=== PATIENT | male | born 1965 | race Caucasian/White ===

== ENCOUNTER 2021-05-06 07:26 | Inpatient (IN) | payer MEDICAID ==
[~2021-05-06] VITALS: Ht 172.7 cm; Wt 111.1 kg
[~2021-05-06 07:26] MED LIST: AMBIEN 5 MG TABL5 M1 PO; ASPIRIN325 PO; BAYER CHEWABLE81 MG PO; BENADRYL25 MG PO; BENICAR HCT 401 EAC1 PO; BENICAR20 MG PO; BENICAR40 MG PO; COLACE100 MG PO; COZAAR 25 MG TA25 M1 PO; COZAAR 50 MG TA50 M2 PO; HEPARIN IV; HEPARIN-1/100 UNIT/M IVPB; HYDROCODONE-AP1 EAC6 PO; LIPITOR 20 MG T20 M1 PO; LIPITOR10 MG; LOPRESSOR25 PO; METOPROLOL TART25 MG PO; MICROZIDE12.5 MG PO; MIRALAX17 GM PO; NAPROSYN500 MG PO; NEURONTIN 300300 M1; NITROGLYCERIN IV; NORFLEX100 MG PO; ONDANSETRON HCL4 M1 IV; ONDANSETRON HCL4 M2 PO; PACERONE 200 M200 M1 PO; PLAVIX 75 MG TA75 M1; PREDNISONE 10 M10 M1 PO; PROZAC20 MG; RANEXA500 MG; TOPAMAX50 MG; TRAZODONE HCL100 MG; TYLENOL325 MG PO; VICODIN ES TAB1 EACH PO; [UNRECOGNIZED DRUG - OTHER]
[2021-05-06 07:42] VITALS: BP 135/72
[2021-05-06] MEDS ORDERED: FENOGLIDE40 MG PO (07:46)
[2021-05-06] MEDS ORDERED: CRESTOR5 MG PO (07:46)
[2021-05-06] MEDS ORDERED: MONTELUKAST SODI4 M1 PO (07:47)
[2021-05-06] MEDS ORDERED: ISORDIL 5MG TABL5 MG PO (07:47)
[2021-05-06] MEDS ORDERED: FAMOTIDINE 10 M10 MG PO (07:47)
[2021-05-06] MEDS ORDERED: NITROSTAT0.4 M1 (07:47)
[2021-05-06] MEDS ORDERED: MIRTAZAPINE7.5 MG PO (07:48)
[2021-05-06 08:27] LABS: HEMATOCRIT 45.8 % (42.0-52.0); HEMOGLOBIN 15.5 gm/dL (14.0-18.0); MCH 28.6 pg (26.0-34.0); MCHC 33.8 g/dL (28.0-37.0); MCV 84.4 fL (80.0-100.0); MPV 8.8 fl. (7.2-11.1); NUCLEATED RBCS 0 /100WBC; PLATELET COUNT* 170 thou/uL (150-400); RBC 5.42 mil/uL (4.50-6.00); RDW-CV 14.5 % (10.5-14.5); WBC 6.7 thou/uL (4.0-11.0)
[2021-05-06 08:35] LABS: CALCIUM 8.5 mg/dL (8.5-10.1); CREATININE 1.1 mg/dL (0.6-1.3); POTASSIUM 3.6 mmol/L (3.5-5.1)
[2021-05-06 08:46] LABS: ALBUMIN 2.6 g/dL (3.4-5.0); TOTAL BILIRUBIN 0.5 mg/dL (<0.1-1.0); TOTAL PROTEIN 6.8 g/dL (6.4-8.2)
[2021-05-06 09:21] LABS: INFLUENZA A ANTIGEN Negative (Negative); INFLUENZA B ANTIGEN Negative (Negative)
[2021-05-06 09:22] LABS: ABSOLUTE LYMPHOCYTES 0.3 thou/uL (0.8-5.3); ABSOLUTE MONOCYTES 0.3 thou/uL (0.0-1.2); PLATELET ESTIMATE ADEQUATE
--- NOTE | 2021-05-06 10:42 | EKG ---
[place] [address] ELECTROCARDIOGRAM REPORT Name: ALE LEROY Room: [place] [address] ADM IN .R.#: [id number] Admission: 05/06/21 Attend Phys: Oscar Schuster Discharge: Date of : 63 Date of Service: 05/06/21 0749 Report #: [id number] THIS REPORT FOR: //name// [facility] ED Test Date: 2021-05-06 Test Time: 07:49:21 Pat Name: ALE LEROY Department: Room: [facility] Gender: M Roofing Machine Tender: ISIAH : 1965 Requested By: Evans Zamora Order Number: [id number] MD: Gregory Aranda Measurements Intervals [place] Rate: 70 P: 30 ME: 165 QRS: -2 QRSD: 100 T: 53 QT: 424 QTc: 458 Interpretive Statements Sinus rhythm Compared to ECG 06/28/2015 03:57:51 Sinus bradycardia no longer present T-wave abnormality no longer present Possible ischemia no longer present Electronically Signed On 05-06-2021 10:42:15 A P MANAGER by Gregory Aranda [email or web address] <ELECTRONICALLY SIGNED> By: Kari Aranda MD, [facility] 05/06/21 1042 0749 0749 Kari Aranda MD, [facility] /EPI
[2021-05-06 14:25] VITALS: BP 116/53
[2021-05-06 17:31] VITALS: BP 120/71
--- NOTE | 2021-05-06 18:35 | NUR ---
PT HAS JUST REPORTED THAT HE DOES NOT WANT TO BE A "DNR" ANYMORE. PT IS PREFERRING TO HAVE CPR AND INTUBATION IF NEEDED.
[2021-05-06 22:00] VITALS: BP 142/73
[2021-05-07 02:19] VITALS: BP 139/78
[2021-05-07 02:25] LABS: BE 0.4 mmol/L (-2 to +3); PCO2 32.9 mmHg (35.0-45.0); pH 7.469 (7.340-7.450)
[2021-05-07 02:27] LABS: PO2 59.4 mmHg (75.0-100.0)
[2021-05-07 03:37] LABS: ABSOLUTE LYMPHOCYTES 0.7 thou/uL (0.8-5.3); ABSOLUTE MONOCYTES 0.3 thou/uL (0.0-1.2); ABSOLUTE NEUTROPHILS 8.3 thou/uL (1.6-8.1); BASOPHILS 0.4 %; HEMOGLOBIN 14.6 gm/dL (14.0-18.0); LYMPHOCYTES 7.4 %; MCH 28.5 pg (26.0-34.0); MCHC 33.9 g/dL (28.0-37.0); MCV 83.9 fL (80.0-100.0); MONOCYTES 2.8 %; MPV 8.3 fl. (7.2-11.1); NUCLEATED RBCS 0 /100WBC; PLATELET COUNT* 210 thou/uL (150-400); POLYS 89.4 %; RBC 5.12 mil/uL (4.50-6.00); RDW-CV 14.7 % (10.5-14.5); WBC 9.3 thou/uL (4.0-11.0)
[2021-05-07 04:06] LABS: APTT 29.3 Seconds (25.0-31.3); CALCIUM 8.1 mg/dL (8.5-10.1); CREATININE 1.1 mg/dL (0.6-1.3); INR 1.1; MAGNESIUM 1.9 mg/dL (1.8-2.4); PHOSPHORUS* 2.8 mg/dL (2.5-4.9); POTASSIUM 3.4 mmol/L (3.5-5.1)
--- NOTE | 2021-05-07 05:12 | NUR ---
DR BRITO (PULMONARY) CALLED RE: CONSULT
[2021-05-07 08:24] VITALS: BP 118/49
--- NOTE | 2021-05-07 10:01 | NUR ---
Pt is admitted on 05/06/21 with Covid. Called Marie at: to complete assessment. Pt lives in a house with one step to enter and 5 steps to his bedroom. Pt was independent in ADL's and Mobility. reports pt has a CPAP machine. Pt saw his PCP approxmately 2 weeks ago. No hx of HH or SNF. CM to follow for discharge planning.
[2021-05-07 12:24] VITALS: BP 133/65
[2021-05-07 16:07] LABS: BE 0.6 mmol/L (-2 to +3); PCO2 35.4 mmHg (35.0-45.0); PO2 108.7 mmHg (75.0-100.0); pH 7.451 (7.340-7.450)
[2021-05-07 16:24] VITALS: BP 125/65
--- NOTE | 2021-05-07 20:07 | NUR ---
REASSURED PATIENT'S FAMILY OVER THE PHONE OF PATIENT'S STATUS. PATIENT IS STABLE AT THIS TIME. FAMILY WAS UNDER THE IMPRESSION PATIENT WAS ICU STATUS AND WE WERE LOOKING FOR PLACEMENT AT A DIFFERENT HOSPITAL.
[2021-05-07 20:08] VITALS: BP 131/65
[2021-05-08 00:08] VITALS: BP 145/82
[2021-05-08 04:13] VITALS: BP 135/59
[2021-05-08 09:38] VITALS: BP 127/82
[2021-05-08 10:36] VITALS: BP 110/69
--- NOTE | 2021-05-08 11:46 | NUR ---
Patient to room 103 via hospital bed from ER. Patient placed on high flow nc, 50 liters at 100%. Breath sounds are diminished. Patient is to have Chest CT with CTA today due to ddimer 1.257.
[2021-05-08 16:00] VITALS: BP 142/69
--- NOTE | 2021-05-08 16:46 | NUR ---
PATIENT TO CT VIA WHEELCHAIR AND ON OXYGEN HIGH FLOW NC AT 15 LITERS.
--- NOTE | 2021-05-08 17:03 | NUR ---
Back to room from CT. Oxygen on 15 liters high flow ..
--- NOTE | 2021-05-08 18:33 | NUR ---
pATIENT HAD A GOOD DAY. REMAINS ON HIGH FLOW, BUT SEEMS TO TOLERATE WELL. WILL GRADUALLY WEAN O2 DOWN RT DETERMINES. PATIENT UP TO COMMODE WITH LITTLE ASSIST. IV SITES X2 PATENT. PATIENT EATS VERY LITTLE DUE TO GASTRIC SLEEVE.
[2021-05-08 20:30] VITALS: BP 137/74
[2021-05-09] VITALS: BP 125/79
--- NOTE | 2021-05-09 00:49 | NUR ---
PT REFUSED BIPAP FOR THE NIGHT,NURSING NOTIFIED. PT ON HHF 55L 100% SAT'S ARE 97%
[2021-05-09 04:00] VITALS: BP 162/77
[2021-05-09 04:33] LABS: HEMATOCRIT 42.7 % (42.0-52.0); HEMOGLOBIN 14.3 gm/dL (14.0-18.0); MCH 28.4 pg (26.0-34.0); MCHC 33.4 g/dL (28.0-37.0); MCV 85.1 fL (80.0-100.0); MPV 8.2 fl. (7.2-11.1); RBC 5.02 mil/uL (4.50-6.00); RDW-CV 14.5 % (10.5-14.5); WBC 8.8 thou/uL (4.0-11.0)
[2021-05-09 05:15] LABS: CALCIUM 8.6 mg/dL (8.5-10.1); MAGNESIUM 2.2 mg/dL (1.8-2.4); POTASSIUM 3.6 mmol/L (3.5-5.1)
--- NOTE | 2021-05-09 07:43 | NUR ---
PATIENT SLEPT MOST OF THE NIGHT. PATIENT REFUSED TO WEAR BIPAP BUT WAS STABLE ON THE HEATED HIGHFLOW OVERNIGHT SATTING IN THE 90S. PATIENT STILL SHORT OF AIR WITH ACTIVITY. WILL CONTINUE TO MONITOR.
[2021-05-09 08:25] VITALS: BP 146/60
--- NOTE | 2021-05-09 12:42 | NUR ---
CM FOLLOWUP PT NOT MED CLEAR YET. PT CURRENTLY ON BIPAP. PT AND FAMILY SEEKING TO DC HOME WHEN MED CLEARED. PRIOR TO HOSPITALIZATION, PT INDEPENDENT WITH ADLS AND LIVING WITH . CM TO FOLLOW FOR DC PLANNING NEEDS.
[2021-05-09 13:06] VITALS: BP 135/52
[2021-05-09 16:45] VITALS: BP 149/61
[2021-05-09 20:00] VITALS: BP 128/60
[2021-05-10] VITALS: BP 167/71
[2021-05-10 03:45] LABS: HEMATOCRIT 40.6 % (42.0-52.0); HEMOGLOBIN 13.5 gm/dL (14.0-18.0); MCH 28.3 pg (26.0-34.0); MCHC 33.2 g/dL (28.0-37.0); MCV 85.4 fL (80.0-100.0); MPV 8.1 fl. (7.2-11.1); RBC 4.75 mil/uL (4.50-6.00); RDW-CV 14.3 % (10.5-14.5); WBC 9.7 thou/uL (4.0-11.0)
[2021-05-10 04:00] VITALS: BP 145/85
[2021-05-10 04:09] LABS: CALCIUM 8.2 mg/dL (8.5-10.1); CREATININE 0.9 mg/dL (0.6-1.3)
--- NOTE | 2021-05-10 05:16 | NUR ---
ASSUMED CARE OF PT AFTER REPORT AT 1930. PT A&OX4. VSS. PHYSICAL ASSESSMENT COMPLETED AND CHARTED. PT ON HHFNC 40L/60%/BIPAP 60% AT HS. PT TRACING SR/SB-HR 30'S-50'S. PT UPADLIB TO BSC. PT DENIES ANY PAIN. CALL LIGHT WITHIN REACH.
[2021-05-10 08:00] VITALS: BP 132/63
[2021-05-10 11:40] VITALS: BP 140/79
[2021-05-10 12:33] LABS: BE 1.9 mmol/L (-2 to +3); PCO2 37.6 mmHg (35.0-45.0); pH 7.452 (7.340-7.450)
[2021-05-10 12:40] LABS: PO2 57.2 mmHg (75.0-100.0)
--- NOTE | 2021-05-10 13:28 | NUR ---
PO2 reported to respiratory and shoe stainer.
--- NOTE | 2021-05-10 15:21 | NUR ---
CM FOLLOWUP PT NOT MED CLEAR. PT ON HIFLOW 02. CURRENT PLAN FOR PT TO DC HOME WITH . PT HAS HOME CPAP. CM TO FOLLOW FOR DC PLANNING NEEDS.
[2021-05-10 20:00] VITALS: BP 151/79
[2021-05-11] VITALS: BP 173/78
[2021-05-11 04:00] VITALS: BP 169/86
--- NOTE | 2021-05-11 05:45 | NUR ---
ASSUMED CARE OF PT AFTER REPORT AT 1930. PT A&OX4. VSS. PHYSICAL ASSESSMENT COMPLETED AND CHARTED. PT ON HHFNC 50L/70%/BIPAP 60% AT HS. PT TRACING SR/SB ON TELE. PT UPADLIB TO BSC. PT DENIES ANY PAIN. PT ABLE TO SLEEP WELL ON BED. CALL LIGHT WITHIN REACH.
[2021-05-11 06:45] LABS: HEMATOCRIT 39.4 % (42.0-52.0); HEMOGLOBIN 13.4 gm/dL (14.0-18.0); MCH 28.6 pg (26.0-34.0); MCV 84.1 fL (80.0-100.0); MPV 7.9 fl. (7.2-11.1); RBC 4.68 mil/uL (4.50-6.00); RDW-CV 14.2 % (10.5-14.5); WBC 8.3 thou/uL (4.0-11.0)
[2021-05-11 06:54] LABS: CALCIUM 8.1 mg/dL (8.5-10.1)
[2021-05-11 08:00] VITALS: BP 103/61
[2021-05-11 11:43] LABS: BE 2.2 mmol/L (-2 to +3); PCO2 38.3 mmHg (35.0-45.0); PO2 70.9 mmHg (75.0-100.0); pH 7.452 (7.340-7.450)
[2021-05-11 13:12] VITALS: BP 137/55
[2021-05-11 16:00] VITALS: BP 157/82
[2021-05-11 20:00] VITALS: BP 154/76
[2021-05-12 00:51] VITALS: BP 143/76
--- NOTE | 2021-05-12 00:53 | NUR ---
ASSUMED CARE OF PT AFTER REPORT AT 1930. PT A&OX4. VSS. PHYSICAL ASSESSMENT COMPLETED AND CHARTED. PT ON HHFNC 50L/70%/BIPAP 60% AT HS. PT TRACING SR/SB ON TELE. PT UPADLIB. PT DENIES PAIN. CALL LIGHT WITHIN REACH.
[2021-05-12 04:08] VITALS: BP 154/68
[2021-05-12 08:00] VITALS: BP 123/73
[2021-05-12 20:00] VITALS: BP 143/72
[2021-05-13] VITALS: BP 165/80
[2021-05-13 04:00] VITALS: BP 144/64
--- NOTE | 2021-05-13 05:29 | NUR ---
ASSUMED CARE OF PT AFTER REPORT AT 1930. PT A&OX4. VSS. PHYSICAL ASSESSMENT COMPLETED AND CHARTED. PT ON HHFNC 55L/98%/BIPAP 60% AT HS. PT TRACING SR/SB ONTELE. PT UPADLIB TO BSC. PT DENIES ANY PAIN. CALL LIGHT WITHIN REACH.
[2021-05-13 05:51] LABS: HEMATOCRIT 39.6 % (42.0-52.0); HEMOGLOBIN 13.4 gm/dL (14.0-18.0); MCH 28.5 pg (26.0-34.0); MCHC 33.7 g/dL (28.0-37.0); MCV 84.4 fL (80.0-100.0); MPV 8.5 fl. (7.2-11.1); RBC 4.69 mil/uL (4.50-6.00); RDW-CV 14.1 % (10.5-14.5); WBC 8.8 thou/uL (4.0-11.0)
[2021-05-13 06:20] LABS: CALCIUM 7.9 mg/dL (8.5-10.1); CREATININE 0.9 mg/dL (0.6-1.3); POTASSIUM 3.8 mmol/L (3.5-5.1)
--- NOTE | 2021-05-13 07:10 | NUR ---
CHANGE OF SHIFT REPORT GIVEN PATIENT SEEN AT BEDSIDE ASSUMED PATIENT CARE
[2021-05-13 08:00] VITALS: BP 134/82
[2021-05-13 12:48] VITALS: BP 125/71
[2021-05-13 16:54] VITALS: BP 143/79
[2021-05-13 20:00] VITALS: BP 144/71
[2021-05-14 01:56] VITALS: BP 123/62
[2021-05-14 04:48] LABS: HEMATOCRIT 39.7 % (42.0-52.0); HEMOGLOBIN 13.6 gm/dL (14.0-18.0); MCH 28.9 pg (26.0-34.0); MCHC 34.3 g/dL (28.0-37.0); MCV 84.1 fL (80.0-100.0); MPV 7.7 fl. (7.2-11.1); RBC 4.72 mil/uL (4.50-6.00); RDW-CV 14.1 % (10.5-14.5); WBC 10.1 thou/uL (4.0-11.0)
[2021-05-14 05:01] LABS: MAGNESIUM 2.1 mg/dL (1.8-2.4); POTASSIUM 3.7 mmol/L (3.5-5.1); TOTAL BILIRUBIN 0.6 mg/dL (<0.1-1.0); TOTAL PROTEIN 5.4 g/dL (6.4-8.2)
[2021-05-14 06:06] VITALS: BP 142/74
--- NOTE | 2021-05-14 07:46 | NUR ---
ASSUMED CARE OF PT AFTER REPORT AT 1930. PT A&OX4. VSS. PHYSICAL ASSESSMENT COMPLETED AND CHARTED. PT ON HHFNC/BIPAP AT HS. PT TRACING SR/SB ON TELE. PT UPADLIB TO RESTROOM. PT DENNIES PAIN. CALL LIGHT WITHIN REACH.
[2021-05-14 08:00] VITALS: BP 128/70
[2021-05-14 12:07] VITALS: BP 139/81
--- NOTE | 2021-05-14 12:51 | NUR ---
Nutrition: Pt admitted with COVID. Assessed for LOS. Pt refused remdesivir, recevied convalescant plasma. Wt: 237#, was 260# at admit. Please reweigh for accuracy. 2gm Na diet. BG 152, albumin 2. H/o CABG x6, HTN. Bipap HS. Encourage good meal intake. Low nutrition risk.
--- NOTE | 2021-05-14 14:11 | NUR ---
CM FOLLOWUP PT NOT YET MED CLEAR. PT WITH INCREASED O2 NEEDS. CM TO FOLLOW FOR DC NEEDS. CURRENT DC PLAN IS TO DC HOME WITH SPOUSE UPON MED CLEARANCE.
[2021-05-14 16:34] VITALS: BP 134/80
[2021-05-14 20:00] VITALS: BP 147/93
[2021-05-15 02:19] VITALS: BP 142/77
[2021-05-15 05:45] LABS: ABSOLUTE LYMPHOCYTES 0.5 thou/uL (0.8-5.3); ABSOLUTE MONOCYTES 0.2 thou/uL (0.0-1.2); ABSOLUTE NEUTROPHILS 6.6 thou/uL (1.6-8.1); BASOPHILS 0.2 %; EOSINOPHILS 0.1 %; HEMATOCRIT 38.2 % (42.0-52.0); HEMOGLOBIN 12.9 gm/dL (14.0-18.0); LYMPHOCYTES 6.8 %; MCH 28.6 pg (26.0-34.0); MCHC 33.8 g/dL (28.0-37.0); MCV 84.7 fL (80.0-100.0); MONOCYTES 2.6 %; MPV 8.7 fl. (7.2-11.1); NUCLEATED RBCS 0 /100WBC; PLATELET COUNT* 184 thou/uL (150-400); POLYS 90.3 %; RDW-CV 14.1 % (10.5-14.5); WBC 7.3 thou/uL (4.0-11.0)
--- NOTE | 2021-05-15 06:03 | NUR ---
ASSUMED CARE OF PT AFTER REPORT AT 1930. PT A&OX4. VSS. PHYSICAL ASSESSMENT COMPLETED AND CHARTED. PT ON HHFNC 40L/85%/BIPAP 60 AT HS. PT TRACING SR/SB ON TELE. PT UPADLIB TO BSC. PT ABLE TO SLEEP WELL ON BED. CALL LIGHT WITHIN REACH.
[2021-05-15 06:26] VITALS: BP 141/65
[2021-05-15 06:27] LABS: ALBUMIN 1.9 g/dL (3.4-5.0); CALCIUM 7.9 mg/dL (8.5-10.1); CREATININE 0.8 mg/dL (0.6-1.3); MAGNESIUM 2.2 mg/dL (1.8-2.4); PHOSPHORUS* 4.6 mg/dL (2.5-4.9); POTASSIUM 4.2 mmol/L (3.5-5.1); TOTAL BILIRUBIN 0.5 mg/dL (<0.1-1.0); TOTAL PROTEIN 5.3 g/dL (6.4-8.2)
[2021-05-15 08:00] VITALS: BP 128/71
--- NOTE | 2021-05-15 12:23 | NUR ---
CM FOLLOWUP PT IS NOT MED CLEAR YET. PT ON 40L O2. PT WOULD LIKE TO DC HOME WHEN MED CLEAR. PT LIVES WITH . CM TO FOLLOW PT FOR FUTURE DC PLANNING NEEDS.
[2021-05-15 12:25] VITALS: BP 132/70
[2021-05-15 16:00] VITALS: BP 117/68
[2021-05-15 20:00] VITALS: BP 111/64
[2021-05-16 01:44] VITALS: BP 143/78
[2021-05-16 04:46] LABS: HEMATOCRIT 38.4 % (42.0-52.0); HEMOGLOBIN 13.1 gm/dL (14.0-18.0); MCH 28.7 pg (26.0-34.0); MCV 84.4 fL (80.0-100.0); MPV 8.7 fl. (7.2-11.1); RBC 4.54 mil/uL (4.50-6.00); RDW-CV 14.1 % (10.5-14.5); WBC 8.9 thou/uL (4.0-11.0)
[2021-05-16 05:12] LABS: ALBUMIN 2.1 g/dL (3.4-5.0); CALCIUM 8.2 mg/dL (8.5-10.1); CREATININE 0.8 mg/dL (0.6-1.3); MAGNESIUM 2.2 mg/dL (1.8-2.4); POTASSIUM 4.3 mmol/L (3.5-5.1); TOTAL BILIRUBIN 0.5 mg/dL (<0.1-1.0); TOTAL PROTEIN 5.5 g/dL (6.4-8.2)
[2021-05-16 05:31] VITALS: BP 110/74
--- NOTE | 2021-05-16 06:58 | NUR ---
ASSUMED CARE OF PT AFTER REPORT AT 1930. PT A&OX4. VSS. PHYSICAL ASSESSMENT COMPLETED AND CHARTED. PT ON HFNC 12L/BIPAP AT HS. PT TRACING SR/SB ON TELE. PT UPADLIB TO BSC. PT ABLE TO SLEEP WELL ON BED. CALL LIGHT WITHIN REACH.
[2021-05-16 08:00] VITALS: BP 106/71
[2021-05-16 13:03] VITALS: BP 106/70
--- NOTE | 2021-05-16 15:30 | NUR ---
CM FOLLOWUP PT NOT YET MED CLEAR. PT ON 12L O2. CURRENT DC PLAN IS FOR PT TO DC HOME WITH SPOUSE WHEN MED CLEAR. CM TO FOLLOW FOR DC NEEDS.
[2021-05-16 16:00] VITALS: BP 122/67
[2021-05-16 20:00] VITALS: BP 128/77
[2021-05-17 00:06] VITALS: BP 136/73
[2021-05-17 04:01] VITALS: BP 144/70
--- NOTE | 2021-05-17 04:01 | NUR ---
ASSUMED CARE OF PT AFTER REPORT AT 1930. PT A&OX4. VSS. PHYSICAL ASSESSMENT COMPLETED AND CHARTED. PT ON HFNC 7L. PT TRACING SR/SB ON TELE. PT UPADLIB TO BSC. PT DENIES PAIN. PT ABLE TO SLEEP WELL ON BED. CALL LIGHT WITHIN REACH.
[2021-05-17 08:00] VITALS: BP 107/66
[2021-05-17 12:59] VITALS: BP 117/90
--- NOTE | 2021-05-17 13:36 | NUR ---
CM FOLLOWUP PT NOT YET MED CLEAR. ANTICIPATE PT BEING MED CLEAR TOMORROW, 05/18/21. PT TO COMPLETE A REST/EX TEST PRIOR TO DC TO DETERMINE O2 NEEDS. CM TO FOLLOW. CURRENT PLAN FOR PT TO DC HOME WITH SPOUSE.
[2021-05-17 16:00] VITALS: BP 132/73
[2021-05-17 20:00] VITALS: BP 128/77
[2021-05-18 00:38] VITALS: BP 118/64
--- NOTE | 2021-05-18 02:23 | NUR ---
ASSUMED CARE OF PT AFTER REPORT AT 1930. PT A&OX4. VSS. PHYSICAL ASSESSMENT COMPLETED AND CHARTED. PT ON HFNC 7L/BIPAP AT HS. PT TRACING SR/SB ON TELE. PT UPADLIB. DENIES PAIN. PT TRANSFERRED TO RM 210 VIA WHEELCHAIR WITH NURSING STAFF WITH BELONGINGS.
[2021-05-18 04:09] VITALS: BP 134/75
[2021-05-18 04:43] LABS: HEMATOCRIT 40.9 % (42.0-52.0); HEMOGLOBIN 13.8 gm/dL (14.0-18.0); MCH 28.8 pg (26.0-34.0); MCHC 33.8 g/dL (28.0-37.0); MCV 85.3 fL (80.0-100.0); MPV 8.9 fl. (7.2-11.1); NUCLEATED RBCS 0 /100WBC; PLATELET COUNT* 167 thou/uL (150-400); RDW-CV 14.4 % (10.5-14.5)
--- NOTE | 2021-05-18 04:54 | NUR ---
REPORT RECEIVED FROM CE TILLMAN ON THIS PATIENT AND PT UP VIA W/CHAIR TO ROOM 210. PT ALERT/ORIENTED X4 AND UP AD GOSIA. PT ON HIGH FLOW @ 7LITERS PER NASAL CANNULA. LONG O2 TUBING PROVIDED SO PT CAN AMBULATE TO BATHROOM. PT WITH DOUBLE LUMAN PICC IN RT UPPER ARM; SALINE LOCKED. PT DENIES PAIN/NAUSEA DURING THIS SHIFT. PT IS HOPING TO BE DISCHARGED TODAY. FREQUENTLY USED ITEMS AND CALL LIGHT WITHIN REACH. SIDERAILS UPX1. WILL CONTINUE TO MONITOR.
[2021-05-18 05:23] LABS: ALBUMIN 2.3 g/dL (3.4-5.0); CALCIUM 8.5 mg/dL (8.5-10.1); MAGNESIUM 2.2 mg/dL (1.8-2.4); PHOSPHORUS* 4.2 mg/dL (2.5-4.9); POTASSIUM 4.2 mmol/L (3.5-5.1); TOTAL BILIRUBIN 0.7 mg/dL (<0.1-1.0); TOTAL PROTEIN 5.7 g/dL (6.4-8.2)
[2021-05-18 06:29] LABS: ABSOLUTE BASOPHILS 0.1 thou/uL (0.0-0.2); ABSOLUTE LYMPHOCYTES 0.8 thou/uL (0.8-5.3); ABSOLUTE MONOCYTES 0.8 thou/uL (0.0-1.2); ABSOLUTE NEUTROPHILS 8.3 thou/uL (1.6-8.1)
[2021-05-18 06:30] LABS: PLATELET ESTIMATE ADEQUATE
[2021-05-18 08:00] VITALS: BP 134/80
[2021-05-18] MEDS ORDERED: TESSALON PERLE100 MG PO (09:01)
[2021-05-18] MEDS ORDERED: BROVANA15 MCG/2 M INH (09:01)
[2021-05-18] MEDS ORDERED: DEXAMETHASONE 22 M1 PO (09:01)
[2021-05-18] MEDS ORDERED: ALBUTEROL2.5 MG/0.1 INH (09:01)
[2021-05-18 11:37] VITALS: BP 99/57
[2021-05-18 14:06] VITALS: BP 99/57
[2021-05-18 14:09] VITALS: BP 99/57
--- NOTE | 2021-05-18 14:11 | NUR ---
CM FOLLOWUP PT TO DC TODAY. PT PENDING DELIVERY OF O2 BY [facility]. [facility] TO DELIVER 02 TO [facility] AND PT HOME ([phone]). [facility] TO ALSO DELIVER NEBULIZER TO PT HOME. PT PENDING HH WITH [facility] ([phone]).
--- NOTE | 2021-05-18 14:56 | NUR ---
PT DISCHARGED HOME WITH ALL BELONGINGS ACCOMPANIED BY HIS . OXYGEN TANKS WERE BROUGHT TO PT SO HE COULD USE THOSE TO GO HOME ON. PICC LINE REMOVED IN RIGHT UPPER ARM WITH OUT DIFFICULTY. PT DENIED PAIN ON DISMISSAL.
--- NOTE | 2021-05-21 10:44 | EKG ---
[place] [address] ELECTROCARDIOGRAM REPORT Name: ALE LEROY Room: [address] DIS IN M.R.#: [id number] Admission: 05/06/21 Attend Phys: Oscar Schuster Discharge: 05/18/21 Date of : 63 Date of Service: 05/18/21 0424 Report #: [id number] THIS REPORT FOR: //name// [facility] Test Date: 2021-05-18 Test Time: 04:24:52 Pat Name: ALE LEROY Department: Room: [address] Gender: M Sweat Band Separator: SHABNAM : 1965 Requested By: Oscar Schuster Order Number: [id number] MD: Anatoly Chatterjee Measurements Intervals [place] Rate: 63 P: 34 MA: 147 QRS: 1 QRSD: 146 T: 175 QT: 464 QTc: 476 Interpretive Statements Sinus rhythm Nonspecific intraventricular conduction delay Abnrm T, consider ischemia, anterolateral lds Compared to ECG 05/06/2021 07:49:21 Intraventricular conduction delay now present Possible ischemia now present Electronically Signed On 05-21-2021 10:44:44 POWER DRIVEN BRUSH MAKER by Anatoly Chatterjee [email or web address] <ELECTRONICALLY SIGNED> By: Anatoly Chatterjee MD, FACC 05/21/21 1044 0424 0424 Anatoly Chatterjee MD, FACC /EPI
== END 2021-05-18 14:42 | disposition home or self-care (01) | DRG 177 ==
LOC: M.ERS 07:26 → M.TBA-ER 08:24 → M.ORTHSURG 05-08 11:01 → M.2W 05-17 23:04
PROVIDERS: Emergency Medicine Emergency Medical Services; Internal Medicine; Internal Medicine Critical Care Medicine; ADMIT Internal Medicine; ATTEND Internal Medicine
PROC: XW13325 Transfusion of Convalescent Plasma (Nonautologous) into Peripheral Vein, Percutaneous Approach, New Technology Group 5 (ICD-10-PCS; principal; 2021-05-07)
PROC: 05HB33Z Insertion of Infusion Device into Right Basilic Vein, Percutaneous Approach (ICD-10-PCS; 2021-05-09)
DX: U07.1 COVID-19 (principal); J12.82 Pneumonia due to coronavirus disease 2019; J80 Acute respiratory distress syndrome; E87.1 Hypo-osmolality and hyponatremia; I25.10 Atherosclerotic heart disease of native coronary artery without angina pectoris; D35.02 Benign neoplasm of left adrenal gland; I10 Essential (primary) hypertension; E66.01 Morbid (severe) obesity due to excess calories; Z68.37 Body mass index [BMI] 37.0-37.9, adult; Z95.1 Presence of aortocoronary bypass graft; Z79.82 Long term (current) use of aspirin; Z79.899 Other long term (current) drug therapy